=== PATIENT | male | born 1965 | race Caucasian/White ===

== ENCOUNTER 2016-06-27 23:49 | Emergency (ER) | payer SELFPAY ==
--- NOTE | 2016-06-28 01:45 | ED CLINICAL REPORT ---
Clinical Report - Physicians/Mid Levels [facility] [address] [place] [address] 06/27/2016 23:51 Patient: AYSHA ZAMORANO Time Seen: 00:Jun 28 2016. Arrived- By private vehicle. Historian- patient. CPT: ER phys charges level 4 (#[id number]). HISTORY OF PRESENT ILLNESS Chief Complaint: LEFT TESTICULAR PAIN. This started about 1 months on and off. and is still present. The problem is described as moderate. The patient has had discomfort with urination and testicular pain. No urinary frequency or genital lesion. Sexual history is noncontributory. Similar symptoms previously: None. Recent medical care: Not recently seen/assessed. REVIEW OF SYSTEMS No fever, chills, flank pain, hematuria or abdominal pain. No vomiting, diarrhea, sore throat, chest pain or difficulty breathing. No cough, joint pain or skin rash. All systems otherwise negative, except as recorded above. PAST HISTORY See nurses notes. No history of sexually transmitted disease, prostatitis or urinary retention. Has not had benign prostatic hypertrophy. Additional Surgeries: no known surgeries. Medications: None. Allergies: None. SOCIAL HISTORY Heavy tobacco smoker (cigarette)- less than 1 pack per day. Occasional alcohol use. History of occasional drug use: marijuana. ADDITIONAL NOTES The nursing notes have been reviewed. PHYSICAL EXAM Vital Signs: 06/27/2016 23:55 BP: 146/95. HR: 81. RR: 19. O2 saturation: 100%. Temp: 97.5 F. Pain level now: 7/10. Appearance: Alert. Patient in mild distress. ENT: Normal external inspection. Pharynx normal. CVS: Heart sounds normal. Respiratory: No respiratory distress. Abdomen: Soft and nontender. Bowel sounds normal. No mass. Back: Normal external inspection. No CVA tenderness. : Moderate tenderness of the left testicle, epididymis and testicular appendix. No urethral discharge. Skin: Skin warm. Normal skin color. No rash. Extremities: Extremities exhibit normal ROM. Neuro: Oriented X 3. LABS, X-RAYS, AND EKG Testicular Scan: (left epididymitis with left testicular mass. Needs follow up.). Flow not decreased. Laboratory Tests: UA-Culture if indicated: (PEARL: 06/28/2016 00:50) ( MsgRcvd 06/28/2016 01:12) Final results Test Result Flag Units (Reference) URINE COLOR YELLOW URINE APPEARANCE CLEAR URINE GLUCOSE NEGATIVE (NEGATIVE) URINE BILIRUBIN NEGATIVE (NEGATIVE) URINE KETONE NEGATIVE (NEGATIVE) URINE SPECIFIC GRAVITY >= 1.030 (1.010-1.030) URINE PH 6.0 (5.0-8.0) URINE PROTEIN TRACE (NEGATIVE) URINE UROBILINOGEN 0.2 EU/dL (0.2-1.0) URINE NITRITE NEGATIVE (NEGATIVE) URINE BLOOD NEGATIVE (NEGATIVE) URINE LEUK ESTERASE NEGATIVE (NEGATIVE) URINE RBC 1-3 rbc/hpf (0-1) URINE WBC 1-3 wbc/hpf (0-1) URINE EPITHELIAL CELLS NONE SEEN EPI/hpf (0-5) URINE BACTERIA NONE SEEN (NONE SEEN) URINE COMMENT CULT NOT INDICATED 3+ MUCUSURINE CULTURES ARE SET-UP BASED ON THE FOLLOWING CRITERIA:POSITIVE NITRITEPOSITIVE LEUKOCYTE ESTERASEGREATER THAN 10 WHITE BLOOD CELLSMODERATE (2+) OR GREATER BACTERIA . PROGRESS AND PROCEDURES Course of Care: Discussed need for follow up for mass and infection. Patient/family counseled. Disposition: Discharged. Condition: stable. CLINICAL IMPRESSION Left epididymitis Left testicular mass. INSTRUCTIONS (You need to follow up for the infection and the bump on your testicle.). Warnings: Further evaluation is necessary. GENERAL WARNINGS: Return or contact your physician immediately if your condition worsens or changes unexpectedly, if not improving as expected, or if other problems arise. Prescription Medications: Hydrocodone/APAP 5mg/325mg: take 1 to 2 orally every 6 hours as needed for pain. Dispense fifteen (15). No refills. Doxycycline 100 mg: Take 1 capsule orally every 12 hours for 10 days. No refill. Follow-up: Follow up with your doctor in ten days. Call for an appointment. Understanding of the discharge instructions verbalized by patient. Discharge instructions reviewed with and understanding was verbalized by soft work wrapper layer and examiner. Follow-up with: [facility], , , [address], , [place], [id number] Follow up in ten days. Call for an appointment. Reason for referral: If you cannot find a doctor. (Electronically signed by Sachin Kendall MD 07/05/2016 16:13)
--- NOTE | 2016-06-28 01:45 | ED CLINICAL REPORT ---
Clinical Report - Physicians/Mid Levels Located Within [facility] [address] [place] [address] 06/27/2016 23:51 Patient: AYSHA ZAMORANO Time Seen: 00:Jun 28 2016. Arrived- By private vehicle. Historian- patient. CPT: ER phys charges level 4 (#[id number]). HISTORY OF PRESENT ILLNESS Chief Complaint: LEFT TESTICULAR PAIN. This started about 1 months on and off. and is still present. The problem is described as moderate. The patient has had discomfort with urination and testicular pain. No urinary frequency or genital lesion. Sexual history is noncontributory. Similar symptoms previously: None. Recent medical care: Not recently seen/assessed. REVIEW OF SYSTEMS No fever, chills, flank pain, hematuria or abdominal pain. No vomiting, diarrhea, sore throat, chest pain or difficulty breathing. No cough, joint pain or skin rash. All systems otherwise negative, except as recorded above. PAST HISTORY See nurses notes. No history of sexually transmitted disease, prostatitis or urinary retention. Has not had benign prostatic hypertrophy. Additional Surgeries: no known surgeries. Medications: None. Allergies: None. SOCIAL HISTORY Heavy tobacco smoker (cigarette)- less than 1 pack per day. Occasional alcohol use. History of occasional drug use: marijuana. ADDITIONAL NOTES The nursing notes have been reviewed. PHYSICAL EXAM Vital Signs: 06/27/2016 23:55 BP: 146/95. HR: 81. RR: 19. O2 saturation: 100%. Temp: 97.5 F. Pain level now: 7/10. Appearance: Alert. Patient in mild distress. ENT: Normal external inspection. Pharynx normal. CVS: Heart sounds normal. Respiratory: No respiratory distress. Abdomen: Soft and nontender. Bowel sounds normal. No mass. Back: Normal external inspection. No CVA tenderness. : Moderate tenderness of the left testicle, epididymis and testicular appendix. No urethral discharge. Skin: Skin warm. Normal skin color. No rash. Extremities: Extremities exhibit normal ROM. Neuro: Oriented X 3. LABS, X-RAYS, AND EKG Testicular Scan: (left epididymitis with left testicular mass. Needs follow up.). Flow not decreased. Laboratory Tests: UA-Culture if indicated: (PEARL: 06/28/2016 00:50) ( MsgRcvd 06/28/2016 01:12) Final results Test Result Flag Units (Reference) URINE COLOR YELLOW URINE APPEARANCE CLEAR URINE GLUCOSE NEGATIVE (NEGATIVE) URINE BILIRUBIN NEGATIVE (NEGATIVE) URINE KETONE NEGATIVE (NEGATIVE) URINE SPECIFIC GRAVITY >= 1.030 (1.010-1.030) URINE PH 6.0 (5.0-8.0) URINE PROTEIN TRACE (NEGATIVE) URINE UROBILINOGEN 0.2 EU/dL (0.2-1.0) URINE NITRITE NEGATIVE (NEGATIVE) URINE BLOOD NEGATIVE (NEGATIVE) URINE LEUK ESTERASE NEGATIVE (NEGATIVE) URINE RBC 1-3 rbc/hpf (0-1) URINE WBC 1-3 wbc/hpf (0-1) URINE EPITHELIAL CELLS NONE SEEN EPI/hpf (0-5) URINE BACTERIA NONE SEEN (NONE SEEN) URINE COMMENT CULT NOT INDICATED 3+ MUCUSURINE CULTURES ARE SET-UP BASED ON THE FOLLOWING CRITERIA:POSITIVE NITRITEPOSITIVE LEUKOCYTE ESTERASEGREATER THAN 10 WHITE BLOOD CELLSMODERATE (2+) OR GREATER BACTERIA . PROGRESS AND PROCEDURES Course of Care: Discussed need for follow up for mass and infection. Patient/family counseled. Disposition: Discharged. Condition: stable. CLINICAL IMPRESSION Left epididymitis Left testicular mass. INSTRUCTIONS (You need to follow up for the infection and the bump on your testicle.). Warnings: Further evaluation is necessary. GENERAL WARNINGS: Return or contact your physician immediately if your condition worsens or changes unexpectedly, if not improving as expected, or if other problems arise. Prescription Medications: Hydrocodone/APAP 5mg/325mg: take 1 to 2 orally every 6 hours as needed for pain. Dispense fifteen (15). No refills. Doxycycline 100 mg: Take 1 capsule orally every 12 hours for 10 days. No refill. Follow-up: Follow up with your doctor in ten days. Call for an appointment. Understanding of the discharge instructions verbalized by patient. Discharge instructions reviewed with and understanding was verbalized by surg nurse. Follow-up with: [facility], , , [address], , [place], [id number] Follow up in ten days. Call for an appointment. Reason for referral: If you cannot find a doctor. (Electronically signed by Sachin Kendall MD 07/05/2016 16:13)
--- NOTE | 2016-06-28 01:45 | ED NURSING NOTES ---
Clinical Report - Nurses Merged With [facility] [place] [address] 06/27/2016 23:51 Patient: AYSHA ZAMORANO TRIAGE Triage time 23:55 Jun 27 2016. Acuity: LEVEL 4. Chief Complaint: PAIN WITH URINATION, TESTICULAR PAIN and (pt reports a "lump" inside his left testicle, pain has been ongoing for a month). Alert. No acute distress. SEPSIS SCREEN: Sepsis Screen: negative. Negative (no infection suspected/documented). --00:01 Swathi Hutchinson R.N. 23:55 06/27/16. BP: 146/95. HR: 81. RR: 19. O2 saturation: 100%. Temp: 97.5 F. Pain level now: 09/13. --00:01 Swathi Hutchinson R.N. Weight: 79.3 kg stated. Height/Length: 71 inches Per Patient. BMI: 24.4. --23:57 Swathi Hutchinson R.N. Medications None. --23:58 Swathi Hutchinson R.N. Allergies None. --23:58 Swathi Hutchinson R.N. History Arrived by private vehicle. Historian: patient. Onset. (1 months ago). ( pt reports burning with urination, some hematuria "here and there"). He has had testicular pain (left testicle),, discomfort with urination and urgency of urination. PAST MEDICAL HX: Immunizations: up-to-date. SOCIAL HX: Light tobacco smoker (cigarette)- less than 1/2 a pack per day (uses [place] daily). Occasional alcohol use. History of drug use: marijuana. No infectious disease exposure. ABUSE ASSESSMENT: No report of abuse. SELF HARM ASSESSMENT: A self harm assessment was performed. The patient answered "no" to the question "Have you recently felt down, depressed, or hopeless?", "Have you noticed less interest or pleasure in doing things?", "Do you have thoughts of harming or killing yourself?", "Are you here because you tried to hurt yourself?", "Have you ever tried to hurt yourself before today?", "Have you recently had thoughts about harming or killing others?" and "Do you have any dangerous items in your possession?". FALL RISK ASSESSMENT: Fall risk assessment completed. No fall risk identified. NUTRITIONAL RISK ASSESSMENT: The nutritional risk assessment revealed no deficiencies. FUNCTIONAL ASSESSMENT: Functional assessment: no impairments noted. LEARNING NEEDS ASSESSMENT: The learning needs assessment revealed no barriers. SKIN INTEGRITY ASSESSMENT: Skin integrity risk assessment completed. No skin integrity risk identified. --00:01 Swathi Hutchinson R.N. ADDITIONAL SURGERIES: no known surgeries. Interventions ID band on patient. --00:01 Swathi Hutchinson R.N. PHYSICAL ASSESSMENT GENERAL / NEURO / PSYCH: Alert. Oriented X 4. Appears in no acute distress. HEENT: Mucous membranes are pink. RESPIRATORY: Respirations not labored. CVS: Capillary refill less than 2 seconds. GI / : Abdomen soft and nontender. SKIN: Skin is warm and dry. --00:01 Swathi Hutchinson R.N. NURSING PROGRESS NOTES Patient gowned. Head of bed elevated. Reassurance given. Two patient identifiers checked. Call light placed in reach. Side rails up x 1. Bed placed in lowest position. Brakes of bed on. Patient ready for evaluation- chart flagged. --00:01 Swathi Hutchinson R.N. ( waiting US arrival, eta 0105, pt aware, in poc, call light in hand, no c/o voiced). --00:45 Swathi Hutchinson R.N. Checked patient name and birthdate: patient confirmed. Instructions provided to collect clean catch urine and patient verbalized understanding urine collected with return of yellow-colored urine; sample sent to lab for urinalysis. Specimen labeled in the presence of the patient. --00:54 Swathi Hutchinson R.N. ( US at bedside). --01:04 Niesha Longoria. DISPOSITION / DISCHARGE 02:00 06/28/16. Condition at departure: stable. The goals identified in the patient's plan of care were met. No learning barriers present. Discharge instructions provided and reviewed with the patient. Reviewed medication(s) side effects, precautions, dosing and course information. Prescription(s) given to the patient. Patient verbalized understanding. Written instructions provided in Serbian. ( Follow up with PCP in ten days. Return if symptoms worsen. Be sure to increase fluids while on antibiotics. Patient verbalized understanding and had no questions at this time.). The patient was discharged by the physician. He was discharged home and accompanied by industrial analyst. He left the Emergency Department ambulatory and via private vehicle. Material Checker driving. FALL RISK ASSESSMENT: Fall risk assessment completed. No fall risk identified. --02:21 Niesha Longoira 02:00 06/28/16. BP: 140/80. HR: 88. RR: 20. O2 saturation: 100% on room air. Temp: 98.8 F (oral). Pain level now: 10. --02:21 Niesha Longoria. Locked/Released at 06/28/2016 2:21 by Niesha Longoria,
--- NOTE | 2016-06-28 01:45 | ED ORDER SUMMARY ---
..... Patient: AYSHA ZAMORANO OrderSheet [facility] VisitID: [id number] [address] [place] [address] 51y, M Registration Date/Time: 06/27/2016 ORDER SHEET Weight: 79.3 kg (stated) Allergies: None GENERAL ORDERS: US Scrotum/Testicular Urgent (00:06/28/2016 Lachelle YA) (Ack 0:36 IJurca ER Tech1) (1:26 AMcQuoid ER Tech1) UA-Culture if indicated Urgent (00:06/28/2016 Lachelle YA) (Ack 0:36 IJurca ER Tech1) (0:53 KPa-Kuchan R.N.) MEDICATION ORDERS: IV FLUIDS: ORDER SHEET NOTES: [Electronically signed by Niesha Longoria (02:06/28/2016)] [Electronically signed by Sachin Kendall MD (16:13 07/05/2016)] [Electronically locked/signed by Niesha Longoria (02:06/28/2016)]
--- NOTE | 2016-06-28 01:45 | ED ORDER SUMMARY ---
..... Patient: AYSHA ZAMORANO OrderSheet [facility] VisitID: [id number] [address] [place] [address] 51y, M Registration Date/Time: 06/27/2016 ORDER SHEET Weight: 79.3 kg (stated) Allergies: None GENERAL ORDERS: US Scrotum/Testicular Urgent (00:06/28/2016 Lachelle YA) (Ack 0:36 IJurca ER Tech1) (1:26 AMcQuoid ER Tech1) UA-Culture if indicated Urgent (00:06/28/2016 Lachelle YA) (Ack 0:36 IJurca ER Tech1) (0:53 KPa-Kuchan R.N.) MEDICATION ORDERS: IV FLUIDS: ORDER SHEET NOTES: [Electronically signed by Niesha Longoria (02:06/28/2016)] [Electronically signed by Sachin Kendall MD (16:13 07/05/2016)] [Electronically locked/signed by Niesha Longoria (02:06/28/2016)]
--- NOTE | 2016-06-28 05:54 | DIAGNOSTIC IMAGING REPORT ---
PROCEDURE: US SCROTUM/TESTICLE INDICATION: Left testicular pain x 1 week. TECHNIQUE: Andres scale and color Doppler sonographic images through the scrotum were obtained. COMPARISON: None. FINDINGS: RIGHT TESTICLE: Measures 4.5 x 2.0 x 2.4 cm with normal echo structure and vascularity. Normal epididymis. Small hydrocele. LEFT TESTICLE: Measures 3.6 x 1.9 x 2.4 cm with normal echo structure and vascularity. 4 mm epididymal head cyst versus spermatocele. Enlarged heterogeneous hyperemic epididymis with a solid 1.5 cm avascular mass. Small hydrocele. IMPRESSION: 1. Left epididymitis with a 1.5 cm avascular mass. Recommend consultation. 2. Small bilateral hydroceles 3. Normal testicles.
--- NOTE | 2016-07-05 16:13 | ED MED RECONCILIATION SUMMARY ---
Patient: AYSHA ZAMORANO Medication Reconciliation Report [facility] VisitID: [id number] [address] [place] [address] 51y, M Registration Date/Time: 06/27/2016 Weight: 79.3 kg Height/Length: 71 in. BMI: 24.4 ALLERGIES: None The patient's Home Medications are listed below: NONE. The source(s) of the original Home Medication information: Not obtained. The following Medications were given to the patient in the Emergency Department: None. The following Medications were prescribed to the patient: Hydrocodone/APAP 5mg/325mg: take 1 to 2 orally every 6 hours as needed for pain. Dispense fifteen (15). No refills. -- Sachin Kendall MD Doxycycline 100 mg: Take 1 capsule orally every 12 hours for 10 days. No refill. -- Sachin Kendall MD
--- NOTE | 2016-07-05 16:13 | ED MAR SUMMARY ---
..... Medication Administration Record [facility] [address] [place], [place] [id number] Patient: AYSHA ZAMORANO Visit ID: [id number] 51y, M Weight: 79.3 kg Height/Length: 71 in BMI: 24.4 ALLERGIES: None
--- NOTE | 2016-07-05 16:13 | ED MED RECONCILIATION SUMMARY ---
Patient: AYSHA ZAMORANO Medication Reconciliation Report [facility] VisitID: [id number] [address] [place] [address] 51y, M Registration Date/Time: 06/27/2016 Weight: 79.3 kg Height/Length: 71 in. BMI: 24.4 ALLERGIES: None The patient's Home Medications are listed below: NONE. The source(s) of the original Home Medication information: Not obtained. The following Medications were given to the patient in the Emergency Department: None. The following Medications were prescribed to the patient: Hydrocodone/APAP 5mg/325mg: take 1 to 2 orally every 6 hours as needed for pain. Dispense fifteen (15). No refills. -- Sachin Kendall MD Doxycycline 100 mg: Take 1 capsule orally every 12 hours for 10 days. No refill. -- Sachin Kendall MD
--- NOTE | 2016-07-05 16:13 | ED DISCHARGE INSTRUCTIONS ---
Patient: AYSHA ZAMORANO General Instructions [facility] VisitID: [id number] [address] [place] [address] 51y, M Registration Date/Time: 06/27/2016 Left epididymitis Left testicular mass. INSTRUCTIONS (You need to follow up for the infection and the bump on your testicle.). Warnings: Further evaluation is necessary. GENERAL WARNINGS: Return or contact your physician immediately if your condition worsens or changes unexpectedly, if not improving as expected, or if other problems arise. Prescription Medications: Hydrocodone/APAP 5mg/325mg: take 1 to 2 orally every 6 hours as needed for pain. Dispense fifteen (15). No refills. Doxycycline 100 mg: Take 1 capsule orally every 12 hours for 10 days. No refill. Follow-up: Follow up with your doctor in ten days. Call for an appointment. Understanding of the discharge instructions verbalized by patient. Discharge instructions reviewed with and understanding was verbalized by upper leather cutter. Follow-up with: [facility], , , [address], , [place], [id number] Follow up in ten days. Call for an appointment. Reason for referral: If you cannot find a doctor. ADDITIONAL INFORMATION Epididymitis The pain and swelling in your scrotum are due to an inflammation of the epididymis. This is a small sac next to the testicle that stores sperm. It is usually due to an infection. In sexually active men, it is often due to a sexually transmitted disease (STD) such as Chlamydia or Gonorrhea. In boys and older men who are not sexually active, it is due to bacteria from the bladder or prostate gland (not an STD infection). Symptoms may begin with lower abdominal or low back pain and spreads down into the scrotum. Usually only one side is affected. The testicle and scrotum swell and become very painful. There may be fever and burning when passing urine. Sometimes there is a discharge from the penis. Treatment is with antibiotics, anti-inflammatory and pain medicines. There should be improvement over the first few days of treatment, but it will take several weeks for all the swelling and discomfort to go away. If an STD is suspected as a cause, sexual partners must also be treated. Home Care: 1) Support the scrotum. When lying down, place a rolled towel under the scrotum. When walking, use an athletic supporter or two pairs of Jockey-style underwear. 2) To relieve pain, apply ice packs to the inflamed area (ice cubes in a plastic bag wrapped in a towel). 3) You may use acetaminophen (Tylenol) or ibuprofen (Motrin, Advil) to control pain, unless another medicine was prescribed. [ NOTE : If you have chronic liver or kidney disease or ever had a stomach ulcer or GI bleeding, talk with your doctor before using these medicines.] 4) Rest in bed until the fever, pain and swelling decrease. It may take several weeks for all of the swelling to go away. Avoid coffee, tea, carbonated beverages and alcohol, which could worsen your symptoms. 5) Avoid constipation (which causes straining and therefore increased pain) by eating natural laxatives such as prunes, fresh fruits and whole-grain cereals. If necessary, use a mild gxsk-vaw-zghkych laxative (Milk of Magnesia) for constipation. Mineral oil can be used to keep the stools soft. 6) Do not have sex until you have finished all treatment and all symptoms have cleared. 7) Take all medicine as directed. Do not miss any doses and do not stop early even if you feel better. Follow Up with your doctor, a urologist, or as advised by our staff to be sure you are responding properly to treatment. If a culture was taken, you may call for the result in 2-3 days. A culture test can ensure that you are on the correct antibiotic. Get Prompt Medical Attention if any of the following occur: -- Fever over 100.4 F (38.0 C) after three days of treatment -- Increasing pain or swelling of the testicle after starting treatment -- Increasing pressure or pain in your bladder -- Unable to pass urine for eight hours You have been given the following additional information: Epididymitis (Electronically signed by Sachin Kendall MD 07/05/2016 16:13)
--- NOTE | 2016-07-05 16:13 | ED MAR SUMMARY ---
..... Medication Administration Record [facility] [address] [place], [place] [id number] Patient: AYSHA ZAMORANO Visit ID: [id number] 51y, M Weight: 79.3 kg Height/Length: 71 in BMI: 24.4 ALLERGIES: None
--- NOTE | 2016-07-05 16:13 | ED DISCHARGE INSTRUCTIONS ---
Patient: AYSHA ZAMORANO General Instructions [facility] VisitID: [id number] [address] [place] [address] 51y, M Registration Date/Time: 06/27/2016 Left epididymitis Left testicular mass. INSTRUCTIONS (You need to follow up for the infection and the bump on your testicle.). Warnings: Further evaluation is necessary. GENERAL WARNINGS: Return or contact your physician immediately if your condition worsens or changes unexpectedly, if not improving as expected, or if other problems arise. Prescription Medications: Hydrocodone/APAP 5mg/325mg: take 1 to 2 orally every 6 hours as needed for pain. Dispense fifteen (15). No refills. Doxycycline 100 mg: Take 1 capsule orally every 12 hours for 10 days. No refill. Follow-up: Follow up with your doctor in ten days. Call for an appointment. Understanding of the discharge instructions verbalized by patient. 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 Follow-up with: [facility], , , [address], , [place], [address] Follow up in ten days. Call for an appointment. Reason for referral: If you cannot find a doctor. ADDITIONAL INFORMATION Epididymitis The pain and swelling in your scrotum are due to an inflammation of the epididymis. This is a small sac next to the testicle that stores sperm. It is usually due to an infection. In sexually active men, it is often due to a sexually transmitted disease (STD) such as Chlamydia or Gonorrhea. In boys and older men who are not sexually active, it is due to bacteria from the bladder or prostate gland (not an STD infection). Symptoms may begin with lower abdominal or low back pain and spreads down into the scrotum. Usually only one side is affected. The testicle and scrotum swell and become very painful. There may be fever and burning when passing urine. Sometimes there is a discharge from the penis. Treatment is with antibiotics, anti-inflammatory and pain medicines. There should be improvement over the first few days of treatment, but it will take several weeks for all the swelling and discomfort to go away. If an STD is suspected as a cause, sexual partners must also be treated. Home Care: 1) Support the scrotum. When lying down, place a rolled towel under the scrotum. When walking, use an athletic supporter or two pairs of Jockey-style underwear. 2) To relieve pain, apply ice packs to the inflamed area (ice cubes in a plastic bag wrapped in a towel). 3) You may use acetaminophen (Tylenol) or ibuprofen (Motrin, Advil) to control pain, unless another medicine was prescribed. [ NOTE : If you have chronic liver or kidney disease or ever had a stomach ulcer or GI bleeding, talk with your doctor before using these medicines.] 4) Rest in bed until the fever, pain and swelling decrease. It may take several weeks for all of the swelling to go away. Avoid coffee, tea, carbonated beverages and alcohol, which could worsen your symptoms. 5) Avoid constipation (which causes straining and therefore increased pain) by eating natural laxatives such as prunes, fresh fruits and whole-grain cereals. If necessary, use a mild oovh-mkv-stvrmrh laxative (Milk of Magnesia) for constipation. Mineral oil can be used to keep the stools soft. 6) Do not have sex until you have finished all treatment and all symptoms have cleared. 7) Take all medicine as directed. Do not miss any doses and do not stop early even if you feel better. Follow Up with your doctor, a urologist, or as advised by our staff to be sure you are responding properly to treatment. If a culture was taken, you may call for the result in 2-3 days. A culture test can ensure that you are on the correct antibiotic. Get Prompt Medical Attention if any of the following occur: -- Fever over 100.4 F (38.0 C) after three days of treatment -- Increasing pain or swelling of the testicle after starting treatment -- Increasing pressure or pain in your bladder -- Unable to pass urine for eight hours You have been given the following additional information: Epididymitis (Electronically signed by Sachin Kendall MD 07/05/2016 16:13)
== END 2016-06-28 02:00 | disposition home or self-care (01) ==
LOC: ED SRH 23:49
DX: N45.1 Epididymitis (principal); N50.9 Disorder of male genital organs, unspecified; F17.210 Nicotine dependence, cigarettes, uncomplicated
CPT/HCPCS: 90004